=== PATIENT | female | born 2000 | race Caucasian/White ===

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

== ENCOUNTER → 2018-04-03 | Outpatient (CLI) | payer BC | LOC: LAB 13:18 | PROVIDERS: ATTEND Hospitalist | DX: E10.9 Type 1 diabetes mellitus without complications (principal); E03.9 Hypothyroidism, unspecified | CPT/HCPCS: 36415; 82040; 82247; 82310; 82374; 82435; 82565; 82947; 83036; 84075; 84132; 84155; 84295; 84439; 84443; 84450; 84460; 84520 ==